=== PATIENT | female | born 1995 | race Caucasian/White ===

== ENCOUNTER 2017-01-23 22:09 | Emergency (ER) | payer SELFPAY ==
[~2017-01-23] VITALS: Ht 177.8 cm; Wt 90.7 kg
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
[2017-01-23 22:24] VITALS: BP 139/80
[2017-01-23] MEDS ORDERED: HYDROcodone/APAP 5/325MG 1 TAB TABLET PO ONE (22:45)
[2017-01-23] MEDS ORDERED: LIDOCAINE 1% / SOD BICARB 8.4% 20 ML VIAL. IJ ONE (22:45)
== END 2017-01-23 23:46 | disposition home or self-care (01) ==
LOC: EEVIPCON 22:09 → ER 22:09
DX: S01.511A Laceration without foreign body of lip, initial encounter (principal); Y04.0XXA Assault by unarmed brawl or fight, initial encounter; Y93.89 Activity, other specified; Y99.8 Other external cause status; Y92.89 Other specified places as the place of occurrence of the external cause
CPT/HCPCS: 12013; 99283-25

== ENCOUNTER 2017-06-08 17:45 | Emergency (ER) | payer SELFPAY ==
[~2017-06-08] VITALS: Ht 167.6 cm; Wt 99.8 kg
[2017-06-08 18:10] VITALS: BP 138/66
--- NOTE | 2017-06-08 18:49 | PHYS DOC ---
Past Medical History Past Medical History: No Pertinent History Past Surgical History: Alcohol Use: Rarely Drug Use: None Adult General Chief Complaint Chief Complaint: RIB PAIN [facility] HPI Patient is a 22 year old female Presents to the emergency department stating that she has having left rib pain and discomfort. She states that she slipped 3 days ago and hit her left ribs on the counter. She states that she has having some shortness of air however she does have equal chest expansion noted. She does have slight abrasion noted on the left lateral lip ribs. Patient states that she took ibuprofen around 1715. Review of Systems Review of Systems Constitutional: Denies fever or chills [] Eyes: Denies change in visual acuity, redness, or eye pain [] HENT: Denies nasal congestion or sore throat [] Respiratory: Denies cough or shortness of breath. Left lateral rib pain Cardiovascular: No additional information not addressed in HPI [] GI: Denies abdominal pain, nausea, vomiting, bloody stools or diarrhea [] : Denies dysuria or hematuria [] Musculoskeletal: Denies back pain or joint pain [] Integument: Denies rash or skin lesions [] Neurologic: Denies headache, focal weakness or sensory changes [] Endocrine: Denies polyuria or polydipsia [] Allergies Allergies Allergies Coded Allergies Type Severity Reaction Last Updated Verified No Known Drug Allergies 01/23/17 No Physical Exam Physical Exam Constitutional: Well developed, well nourished, no acute distress, non-toxic appearance. [] HENT: Normocephalic, atraumatic, bilateral external ears normal, oropharynx moist, no oral exudates, nose normal. [] Eyes: PERRLA, EOMI, conjunctiva normal, no discharge. [] Neck: Normal range of motion, no tenderness, supple, no stridor. [] Cardiovascular:Heart rate regular rhythm, no murmur [] Lungs & Thorax: Bilateral breath sounds clear to auscultation. Equal chest expansion noted. No rib deformities noted no crepitus no deformities noted no step-offs noted. Abdomen: Bowel sounds normal, soft, no tenderness, no masses, no pulsatile masses. [] Skin: Warm, dry, no erythema, no rash. Patient with a left lateral rib abrasion noted. Back: No tenderness Extremities: No tenderness, no cyanosis, no clubbing, ROM intact, no edema. [] Neurologic: Alert and oriented X 3, normal motor function, normal sensory function, no focal deficits noted. [] Psychologic: Affect normal, judgement normal, mood normal. [] Current Patient Data Vital Signs Vital Signs Date Time Temp Pulse Resp B/P (MAP) Pulse Ox O2 Delivery O2 Flow Rate FiO2 06/08/17 18:10 97.9 76 16 98 Room Air 97.9 Lab Values Laboratory Tests Test 06/08/17 18:17 POC Urine HCG, Qualitative Hcg negative (Negative) EKG EKG [] Radiology/Procedures Radiology/Procedures [] Course & Med Decision Making Course & Med Decision Making Pertinent Labs and Imaging studies reviewed. (See chart for details) test was negative. X-rays are negative for any abnormalities per Dr. Herndon. Patient will be discharged home with recommendations to use ibuprofen 800 mg every 8 hours with food stop taking few develop an upset stomach. Recommended warm moist packs. Also recommended deep breathing every 2 hours to prevent pneumonia. Patient will be discharged home with recommendations to follow-up the primary care physician in the next 5-7 days. Signs and symptoms to return back to emergency department as been provided. All questions and concerns been answered at the patient's bedside. [] Dragon Disclaimer Dragon Disclaimer This electronic medical record was generated, in whole or in part, using a voice recognition dictation system. Departure Departure Impression: Primary Impression: Contusion of rib on left side Disposition: 01 HOME, SELF-CARE Condition: STABLE Referrals: NO PCP (PCP) Patient Instructions: Rib Contusion Additional Instructions: Activity as tolerated. Tylenol or ibuprofen for pain and discomfort. You may take up to 800 mg of ibuprofen every 8 hours. Make sure you take this with food to prevent stomach upset. Warm moist packs to the chest wall area will also help with pain and discomfort. Patient you taking deep breaths every 2 hours to make sure that you do not obtain a pneumonia. Follow-up through primary care physician in the next week. Return back to emergency prior signs and symptoms of become worse. Problem Qualifiers Primary Impression: Contusion of rib on left side Encounter type: initial encounter Qualified Codes: S20.212A - Contusion of left front wall of thorax, initial encounter PATRICK SEXTON VAULT CLERK Jun 08, 2017 18:49
--- NOTE | 2017-06-09 09:01 | RAD ---
Left RIBS with chest, 4 views, 06/08/2017: History: Fall, pain No left rib fracture is identified. There is no evidence of underlying pneumothorax, hemothorax or pulmonary infiltrate. The heart size is normal. IMPRESSION: No significant left rib abnormality is detected.
== END 2017-06-08 19:25 | disposition home or self-care (01) ==
LOC: ER 17:45
DX: S20.212A Contusion of left front wall of thorax, initial encounter (principal); W22.8XXA Striking against or struck by other objects, initial encounter; Y93.89 Activity, other specified; Y92.89 Other specified places as the place of occurrence of the external cause; Y99.8 Other external cause status
CPT/HCPCS: 71101; 81025; 99284-25